=== PATIENT | female | born 1985 | race Asian ===

== ENCOUNTER 2019-12-27 19:52 | Emergency (ER) | payer OTHER ==
[~2019-12-27] VITALS: Ht 157.5 cm; Wt 59.1 kg
[~2019-12-27 19:52] MED LIST: DOCU-131 PO; FURO-93 PO; HYDR-3240 PO; IBUP-1222 PO; PREN1TAB60 PO; levothyroxine
--- NOTE | 2019-12-27 20:17 | NUR ---
ERP TO BEDSIDE, PT SITTING IN BED, TALKING IN FULL SENTENCES.
[2019-12-27] MEDS ORDERED: SODIUM CHLORIDE FLUSH 10ML SYR IVF ONE (20:30)
[2019-12-27] MEDS ORDERED: PROMETHAZINE/COD. 10MG/6.25MG/5 ML ORAL SOL PO ONE (20:30)
[2019-12-27] MEDS ORDERED: SODIUM CHLORIDE 0.9% 1,000ML IVBOLUS ONE (20:30)
[2019-12-27 20:47] LABS: BASOPHILS # (AUTO) 0.02 x10^3/uL (0-0.1); BASOPHILS % (AUTO) 0 % (0-1); EOSINOPHILS % (AUTO) 0 % (1-7); LYMPHOCYTES # (AUTO) 1.13 x10^3/uL (1-3.4); LYMPHOCYTES % (AUTO) 26 % (22-44); MD NO; MEAN CORPUSCULAR HEMOGLOBIN 31.8 pg (27.0-34.8); MEAN CORPUSCULAR HGB CONC 33.8 g/dL (32.4-35.8); MEAN CORPUSCULAR VOLUME 94.2 fL (80-100); MEAN PLATELET VOLUME 7.7 fL (7.4-10.4); MONOCYTES # (AUTO) 0.36 x10^3/uL (0.2-0.8); MONOCYTES % (AUTO) 8 % (2-9); NEUTROPHILS # (AUTO) 2.94 x10^3/uL (1.8-6.8); NEUTROPHILS % (AUTO) 66 % (42-75); PLATELET COUNT 208 x10^3/uL (130-400); RED BLOOD COUNT 4.22 x10^6/uL (3.82-5.3); RED CELL DISTRIBUTION WIDTH 12.6 % (9.6-15.2)
[2019-12-27 20:57] LABS: ALANINE AMINOTRANSFERASE 106 U/L (12-78); ALBUMIN 3.5 g/dL (3.4-5.0); ANION GAP 5 mmol/L (5-15); CALCIUM 8.4 mg/dL (8.5-10.1); CHLORIDE 104 mmol/L (98-107); CREATININE 0.78 mg/dL (0.55-1.02)
--- NOTE | 2019-12-27 20:57 | NUR ---
THIS PT WAS CONFIRMED WITH COVID ON SATURDAY. SHE PRESENTS SATING AT 97% ON RA, WITH FREQUENT DRY COUGH AND COMPLAINT OF HER THROAT HURTING. PT ALSO HAS NAUSEA BUT DENIES VOMITTING, DRY HEAVING NOTED. PT ALSO STATES SHE'S HAVING LOOSE STOOLS. PT DENIES ANY ABD PAIN. SHE DOES HOWEVER COMPLAIN OF BILATERAL FLANK PAIN. NO OTHER UTI SYMPTOMS. SHE WENT TO URGENT CARE, AND WAS DIAGNOSED WITH A UTI, AND TOLD THAT IF HER SYMPTOMS DIDN'T RESOLVE TO COME THE ER.
[2019-12-27 21:01] LABS: ALKALINE PHOSPHATASE 78 U/L (45-117); BILIRUBIN,TOTAL 0.9 mg/dL (0.2-1.0); TOTAL PROTEIN 7.9 g/dL (6.4-8.2)
--- NOTE | 2019-12-27 21:11 | NUR ---
PT UP TO BEDSIDE COMMODE. PLACED ON CARDIAC, BP AND O2 MONITORS. NO SIGNS OF DISTRESS, CALL LIGHT IN REACH.
[2019-12-27 21:23] LABS: MICROSCOPIC INDICATED
[2019-12-27] MEDS ORDERED: KETOROLAC 30 MG/1 ML ONE (21:44)
[2019-12-27] MEDS ORDERED: ACETAMINOPHEN 500 MG TABLET ONE (22:00)
[2019-12-27] MEDS ORDERED: KETOROLAC 30 MG/1 ML IVPush ONE (22:00)
[2019-12-27] MEDS ORDERED: KETOROLAC 30 MG/1 ML IM ONE (22:00)
[2019-12-27] MEDS ORDERED: ACETAMINOPHEN 500 MG TABLET PO ONE (22:00)
--- NOTE | 2019-12-27 22:41 | NUR ---
PT LAYING IN BED SLEEPING. EYES CLOSED RESPIRATIONS EVEN AND RAPID BUT UNLABORED. PT STATES SHE IS RELIEVED OF BODY PAIN BUT THAT HER THROAT STILL BOTHERS HER. TEMP WAS RECHECKED WITH MOST RECENT VITALS, HOWEVER IT HAS ONLY BEEN 30 MINUTES SINCE TYLENOL ADMIN. WILL RECHECK TEMP AND PUT CHART UP FOR RECHECK.
[2019-12-27] MEDS ORDERED: DOXYCYCLINE 100MG TABLET PO ONE (23:00)
[2019-12-27] MEDS ORDERED: DOXYCYCLINE 100MG TABLET ONE (23:01)
--- NOTE | 2019-12-27 23:03 | NUR ---
ERP BACK TO BEDSIDE, PT UPDATED ON POC. PT TEMP RECHECKED, 101.5.
--- NOTE | 2019-12-27 23:13 | NUR ---
PT GIVEN EXTENSIVE EDUCATION BY ERP AND THIS RN ABOUT HOME CARE INCLUDING DISEASE PROCESS, MEDICATION, TEMPERATURE MANAGEMENT, ISOLATION PRECAUTIONS, AND WHEN TO RETURN TO THE ER.
[2019-12-27 23:22] VITALS: BP 111/69
== END 2019-12-27 23:24 | disposition home or self-care (01) ==
LOC: ED 20:22
DX: J18.9 Pneumonia, unspecified organism (principal); R10.84 Generalized abdominal pain; R50.9 Fever, unspecified; R00.0 Tachycardia, unspecified; R11.2 Nausea with vomiting, unspecified
CPT/HCPCS: 36415; 71045; 80053; 81001; 83605; 83690; 84145; 84703; 85025; 87040; 96361; 96374; 99284; J1885; J7030

== ENCOUNTER 2020-07-02 09:45 | Emergency (ER) | payer OTHER ==
[~2020-07-02] VITALS: Ht 157.5 cm; Wt 65.3 kg
[~2020-07-02 09:45] MED LIST changes: +HYDR-1067 PO; -HYDR-3240 PO
--- NOTE | 2020-07-02 10:14 | NUR ---
PT C/O RIGHT ABD PAIN FOR A WEEK. PAIN INITIALLY WAS INTERMITTANT AND THEN BECAME CONSTAN OVER THE LAST 2 DAYS. PT STATES THE PAIN IS DULL WITH OCCASIONAL SHARP PAINS. 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 PT ALSO HAD N/V LAST NIGHT. NAUSEA STILL PRESENT AND HAD A RECENT BOUT OF DIARRHEA.
--- NOTE | 2020-07-02 10:17 | NUR ---
URINE SENT TO LAB
--- NOTE | 2020-07-02 10:20 | NUR ---
PT OFF THE FLOOR TO ULTRASOUND
[2020-07-02 10:22] LABS: MICROSCOPIC NOT IND
[2020-07-02 10:23] LABS: BASOPHILS % (AUTO) 1 % (0-1); EOSINOPHILS % (AUTO) 1 % (1-7); LYMPHOCYTES % (AUTO) 22 % (22-44); MEAN CORPUSCULAR HEMOGLOBIN 32.1 pg (27.0-34.8); MEAN CORPUSCULAR HGB CONC 33.6 g/dL (32.4-35.8); MEAN PLATELET VOLUME 6.6 fL (7.4-10.4); MONOCYTES % (AUTO) 8 % (2-9); NEUTROPHILS % (AUTO) 69 % (42-75); PLATELET COUNT 416 x10^3/uL (130-400); RED BLOOD COUNT 4.26 x10^6/uL (3.82-5.3); RED CELL DISTRIBUTION WIDTH 12.6 % (9.6-15.2)
[2020-07-02 10:26] LABS: MD NO
[2020-07-02] MEDS ORDERED: SODIUM CHLORIDE FLUSH 10ML SYR IVF ONE (10:30)
[2020-07-02 10:33] LABS: ALANINE AMINOTRANSFERASE 41 U/L (12-78); ANION GAP 7 mmol/L (5-15); CALCIUM 8.6 mg/dL (8.5-10.1); CHLORIDE 106 mmol/L (98-107)
[2020-07-02 10:39] LABS: ALKALINE PHOSPHATASE 64 U/L (45-117); BILIRUBIN,TOTAL 0.6 mg/dL (0.2-1.0); CREATININE 0.62 mg/dL (0.55-1.02); TOTAL PROTEIN 7.7 g/dL (6.4-8.2)
[2020-07-02 12:17] VITALS: BP 124/72
--- NOTE | 2020-07-02 12:18 | NUR ---
PT AND SPOUSE REC'VD DISCHARGE INSTRUCTIONS AND EDUCATION. PT AND SPOUSE HAD NO QUESTIONS. PT AND SPOUSE AMBULATED TO DC AREA, STEADY GAIT.
== END 2020-07-02 12:21 | disposition home or self-care (01) ==
LOC: ED 11:09
DX: O26.891 Other specified pregnancy related conditions, first trimester (principal); R10.31 Right lower quadrant pain; R11.2 Nausea with vomiting, unspecified; Z3A.01 Less than 8 weeks gestation of pregnancy
CPT/HCPCS: 36415; 76700; 76801; 80053; 81003; 83690; 84702; 85025; 99285

== ENCOUNTER → 2020-10-25 | Outpatient (CLI) | payer OTHER ==
[~2020-10-25] MED LIST changes: -HYDR-1067 PO; +HYDR-2214 PO
== END | disposition home or self-care (01) ==
LOC: LDOP 18:08
PROVIDERS: ATTEND Obstetrics & Gynecology
DX: O36.8120 Decreased fetal movements, second trimester, not applicable or unspecified (principal); Z3A.21 21 weeks gestation of pregnancy
CPT/HCPCS: 99211; G0463

== ENCOUNTER 2020-12-14 15:44 | Inpatient (IN) | payer OTHER ==
[~2020-12-14] VITALS: Ht 157.5 cm; Wt 77.0 kg
== END 2020-12-15 10:25 | disposition home or self-care (01) | DRG 833 ==
LOC: LDOP 15:44 → LDIP 18:25
PROVIDERS: ADMIT Obstetrics & Gynecology; ATTEND Obstetrics & Gynecology
DX: O13.3 Gestational [pregnancy-induced] hypertension without significant proteinuria, third trimester (principal); O99.283 Endocrine, nutritional and metabolic diseases complicating pregnancy, third trimester; Z3A.28 28 weeks gestation of pregnancy

== ENCOUNTER 2020-12-15 17:22 | Observation (INO) | payer OTHER ==
[~2020-12-15] VITALS: Ht 157.5 cm; Wt 76.8 kg
[2020-12-15 17:53] VITALS: BP 140/87
[2020-12-15] MEDS ORDERED: ACETAMINOPHEN 650 MG SUPP PR PRN (18:30)
[2020-12-15] MEDS ORDERED: ACETAMINOPHEN 325 MG TABLET ONE (18:32)
[2020-12-15] MEDS: ACETAMINOPHEN 325 MG TABLET PO PRN ×2 (18:40→23:44)
[2020-12-15 19:21] LABS: BASOPHILS % (AUTO) 0 % (0-1); EOSINOPHILS % (AUTO) 0 % (1-7); LYMPHOCYTES % (AUTO) 11 % (22-44); MEAN CORPUSCULAR HEMOGLOBIN 31.6 pg (27.0-34.8); MEAN CORPUSCULAR HGB CONC 33.7 g/dL (32.4-35.8); MEAN PLATELET VOLUME 7.4 fL (7.4-10.4); MONOCYTES % (AUTO) 2 % (2-9); NEUTROPHILS % (AUTO) 87 % (42-75); PLATELET COUNT 353 x10^3/uL (130-400); RED BLOOD COUNT 3.72 x10^6/uL (3.82-5.3); RED CELL DISTRIBUTION WIDTH 12.7 % (9.6-15.2)
[2020-12-15 19:29] LABS: ALANINE AMINOTRANSFERASE 15 U/L (12-78); ALBUMIN 2.8 g/dL (3.4-5.0); ANION GAP 11 mmol/L (5-15); CALCIUM 9.1 mg/dL (8.5-10.1); CHLORIDE 107 mmol/L (98-107); CREATININE 0.47 mg/dL (0.55-1.02)
[2020-12-15 19:30] LABS: BILIRUBIN, DIRECT < 0.1 mg/dL (0.1-0.2)
[2020-12-15 19:31] LABS: ALKALINE PHOSPHATASE 74 U/L (45-117); BILIRUBIN,TOTAL 0.3 mg/dL (0.2-1.0)
[2020-12-15 21:22] LABS: MICROSCOPIC NOT IND
[2020-12-15 21:34] LABS: TOTAL PROTEIN 24HR,URINE 250 mg/24hrs (0-149)
[2020-12-15] MEDS ORDERED: ASPI-963 PO (22:47)
[2020-12-16] MEDS ORDERED: BETAMETHASONE 6 MG/ML, 5ML IM ONE (09:00)
== END 2020-12-16 09:56 | disposition home or self-care (01) ==
LOC: LDOP 17:22 → LDIP 18:26
PROVIDERS: ADMIT Obstetrics & Gynecology; ATTEND Obstetrics & Gynecology
DX: O13.3 Gestational [pregnancy-induced] hypertension without significant proteinuria, third trimester (principal); O62.9 Abnormality of forces of labor, unspecified; O99.283 Endocrine, nutritional and metabolic diseases complicating pregnancy, third trimester; E03.9 Hypothyroidism, unspecified; O35.8XX0 Maternal care for other (suspected) fetal abnormality and damage, not applicable or unspecified; Z3A.28 28 weeks gestation of pregnancy
CPT/HCPCS: 59025; 80053; 81003; 82248; 84156; 84550; 85025; 96372; G0378; G0379; J0702